=== PATIENT | female | born 1975 | race African-American/Black ===

== ENCOUNTER → 2017-04-23 | Outpatient (CLI) | payer OTHER, BC ==
[~2017-04-23] MED LIST: AZITHROMYCIN 2250 MG; COLACE100 MG PO; DEXILANT60 MG PO; DILAUDID2 MG PO; IMITREX 50 MG T50 MG PO; KENALOG-1010 MG/ML SUBQ; KENALOG60 GM; LEVAQUIN 500 M500 M1 PO; MILK OF MA2400 MG/10; MIRALAX17 GM PO; MUCINEX TA600 MG/TA2 PO; NORCO ELIXIR PO; PANTOPRAZOLE SO40 M1 PO; PREDNISONE 20 M20 M1 PO; PROMETHAZINE-C120 ML PO; PROTONIX40 M1 PO; SENOKOT-S1 TA1 PO; SUDOGEST60 MG PO; SUPHEDRINE30 MG PO; TOPAMAX 100 MG100 MG PO; XANAX 0.5 MG0.5 MG PO; ZOFRAN ODT4 MG PO; ZYRTEC10 MG PO
== END ==
LOC: RAD 04-19 04:06
DX: Z12.31 Encounter for screening mammogram for malignant neoplasm of breast (principal)

== ENCOUNTER → 2018-05-20 | Outpatient (CLI) | payer OTHER, BC | LOC: RAD 07:32 | DX: Z12.31 Encounter for screening mammogram for malignant neoplasm of breast (principal) ==

== ENCOUNTER → 2019-01-13 | Outpatient (CLI) | payer OTHER, BC ==
--- NOTE | 2019-01-13 12:26 | 2DMMODE ---
[facility] [employer] [address] 2 D/M-MODE ECHOCARDIOGRAM Name: THAO JORDAN Room #: REG [facility]#: [id number] Admission: 01/13/19 Attend Phys: Juana Byers Discharge: Date of : 71 Date of Service: 01/13/19 1226 Report #: [id number] THIS REPORT FOR: //name// APPROVED REPORT Study performed: 01/13/2019 10:33:08 EXAM: Comprehensive 2D, Doppler, and color-flow Echocardiogram Patient Location: Out-Patient Room #: Echo lab 1 Status: routine BSA: 1.78 HR: 64 bpm BP: 126/76 mmHg Rhythm: NSR Other Information Study Quality: Good Indications Near syncope 2D Dimensions RVDd: 30.56 mm IVSd: 8.14 (7-11mm) LVOT Diam: 17.66 (18-24mm) LVDd: 41.40 mm PWd: 7.74 (7-11mm) Ascending Ao: 26.60 (22-36mm) LVDs: 26.90 (25-40mm) Aortic Root: 23.88 mm IVC: 17.00 mm Volumes Left Atrial Volume (Systole) Single Plane 4CH: 53.32 mL Single Plane 2CH: 39.74 mL LA ESV Index: 29.00 mL/m2 Aortic Valve AoV Peak Tristan.: 1.66 m/s AO Peak Gr.: 10.99 mmHg LVOT Max P.62 mmHg LVOT Max V: 1.19 m/s DEEP Vmax: 1.75 cm2 Mitral Valve E/A Ratio: 1.5 MV Decel. Time: 202.17 ms MV E Max Tristan.: 1.06 m/s [facility] [address] [place] [address] 2 D/M-MODE ECHOCARDIOGRAM Name: THAO JORDAN Room #: [employer]#: [id number] Admission: 01/13/19 Attend Phys: Juana Byers Discharge: Date of : 71 Date of Service: 01/13/19 1226 Report #: [id number] MV A Tristan.: 0.72 m/s MV PHT: 58.63 ms IVRT: 83.04 ms Pulmonary Valve PV Peak Tristan.: 0.77 m/s PV Peak Gr.: 2.37 mmHg Pulmonary Vein P Vein S: 0.64 m/s P Vein A: 0.30 m/s P Vein D: 0.46 m/s P Vein A Dur.: 138.4 msec P Vein S/D Ratio: 1.39 Tricuspid Valve TR Peak Tristan.: 2.19 m/s TR Peak Gr.: 19.13 mmHg PA Pressure: 24.00 mmHg Left Ventricle The left ventricle is normal size. There is normal LV segmental wall motion. There is normal left ventricular wall thickness. Left ventricular systolic function is normal. The left ventricular ejection fraction is within the normal range. LVEF is 55-60%. The left ventricular diastolic function is normal. Right Ventricle The right ventricle is normal size. The right ventricular systolic function is normal. Atria The left atrium size is normal. The right atrium size is normal. Aortic Valve The aortic valve is normal in structure. No aortic regurgitation is present. There is no aortic valvular stenosis. Mitral Valve The mitral valve is normal in structure. There is no mitral valve regurgitation noted. No evidence of mitral valve stenosis. Tricuspid Valve The tricuspid valve is normal in structure. There is trace tricuspid regurgitation. Estimated PAP 24 mmHg. There is no pulmonary hypertension. Pulmonic Valve [address] [address] 2 D/M-MODE ECHOCARDIOGRAM Name: NIKKITHAO Alex Room #: REG [facility]#: [id number] Admission: 01/13/19 Attend Phys: Juana Byers Discharge: Date of : 71 Date of Service: 01/13/19 1226 Report #: [id number] The pulmonary valve is normal in structure. There is no pulmonic valvular regurgitation. Great Vessels The aortic root is normal in size. IVC is normal in size and collapses >50% with inspiration. Pericardium There is no pericardial effusion. <Conclusion> The left ventricle is normal size. There is normal left ventricular wall thickness. Left ventricular systolic function is normal. The right ventricle is normal size. The left atrium size is normal. The right atrium size is normal. The aortic valve is normal in structure. The mitral valve is normal in structure. There is trace tricuspid regurgitation. Estimated PAP 24 mmHg. <ELECTRONICALLY SIGNED> By: Rajendra Richards MD 01/13/19 1226 1226 1226 Rajendra Richards MD /INF
== END ==
LOC: CV 12-30 11:25
DX: I65.23 Occlusion and stenosis of bilateral carotid arteries (principal); R55 Syncope and collapse

== ENCOUNTER → 2019-05-29 | Outpatient (CLI) | payer OTHER, BC | LOC: RAD 08:27 | DX: R05 Cough (principal); R09.89 Other specified symptoms and signs involving the circulatory and respiratory systems ==

== ENCOUNTER → 2020-01-25 | Outpatient (CLI) | payer OTHER, BC | LOC: LAB 09:40 | PROVIDERS: ATTEND Pediatrics | DX: Z20.828 Contact with and (suspected) exposure to other viral communicable diseases (principal) ==

== ENCOUNTER → 2020-04-09 | Outpatient (CLI) | payer OTHER, BC | LOC: LAB 07:43 | PROVIDERS: ATTEND Specialist | DX: Z01.812 Encounter for preprocedural laboratory examination (principal); Z20.828 Contact with and (suspected) exposure to other viral communicable diseases ==

== ENCOUNTER → 2020-04-23 | Outpatient (CLI) | payer OTHER, BC ==
[2020-04-23 09:29] LABS: BASOPHILS 0.6 % (0.0-2.0); EOSINOPHILS 3.7 % (0.0-3.0); HEMATOCRIT 39.3 % (37.0-47.0); HEMOGLOBIN 12.4 gm/dL (12.0-15.0); LYMPHOCYTES 44.9 % (24.0-44.0); MCHC 31.5 g/dL (28.0-37.0); MCV 82.6 fL (80.0-100.0); MONOCYTES 6.2 % (1.0-8.0); PLATELET COUNT 206 thou/uL (150-400); POLYS 44.6 % (36.0-66.0); RBC 4.75 mil/uL (4.20-5.00); RDW 13.2 % (10.5-14.5); WBC 4.5 thou/uL (4.0-11.0)
[2020-04-23 09:45] LABS: ALBUMIN 3.5 g/dL (3.4-5.0); ANION GAP 7 mmol/L (7-16); BUN 9 mg/dL (7-18); CHLORIDE 102 mmol/L (98-107); CO2 27 mmol/L (21-32); CREATININE 0.9 mg/dL (0.6-1.0); GLUCOSE 90 mg/dL (74-106); POTASSIUM 3.7 mmol/L (3.5-5.1); SGOT 16 U/L (15-37); SGPT 19 U/L (30-65); SODIUM 136 mmol/L (136-145); TOTAL BILIRUBIN 0.8 mg/dL (0.2-1.0); TOTAL PROTEIN 7.6 g/dL (6.4-8.2)
[2020-04-23 09:59] LABS: CHOLESTEROL 179 mg/dL (<200); HDL CHOLESTEROL 82 mg/dL (>40); LDL CHOLESTEROL 86 mg/dL (<100); TC:HDL 2.2 Ratio (Not establshd); TRIGLYCERIDE 56 mg/dL (<150); VLDL 11 mg/dL (<40)
[2020-04-24 03:06] LABS: GLYCOHEMOGLOBIN (HGB A1C) 5.2 % (4.8-5.6)
[2020-04-24 15:09] LABS: ANTI-DNA SCREEN 1 IU/mL (0-9); ANTI-RNP 0.3 AI (0.0-0.9)
== END ==
LOC: BC 04-09 15:16 → LAB 07:22 → BC 14:55
PROVIDERS: ATTEND Pediatrics
DX: K21.00 Gastro-esophageal reflux disease with esophagitis, without bleeding (principal); R76.8 Other specified abnormal immunological findings in serum; K58.2 Mixed irritable bowel syndrome; R10.9 Unspecified abdominal pain; R53.83 Other fatigue; J45.901 Unspecified asthma with (acute) exacerbation; R79.82 Elevated C-reactive protein (CRP)

== ENCOUNTER → 2020-04-24 | Outpatient (CLI) | payer OTHER, BC | LOC: BC 07:58 | PROVIDERS: ATTEND Pediatrics | DX: Z12.31 Encounter for screening mammogram for malignant neoplasm of breast (principal) ==

== ENCOUNTER → 2020-05-28 | Outpatient (CLI) | payer OTHER, BC ==
[~2020-05-28] VITALS: Ht 162.6 cm; Wt 75.3 kg
[~2020-05-28] MED LIST changes: +SINGULAIR 10 MG10 M1 PO
== END ==
LOC: LAB 11:39
PROVIDERS: ATTEND Specialist
DX: Z01.812 Encounter for preprocedural laboratory examination (principal); Z20.828 Contact with and (suspected) exposure to other viral communicable diseases

== ENCOUNTER → 2020-08-06 | Outpatient (CLI) | payer OTHER, BC | LOC: LAB 10:10 | PROVIDERS: ATTEND Pediatrics | DX: R50.9 Fever, unspecified (principal) ==

== ENCOUNTER → 2020-08-08 | Outpatient (CLI) | payer OTHER, BC | LOC: LAB 08:30 | PROVIDERS: ATTEND Internal Medicine | DX: R50.9 Fever, unspecified (principal); J02.9 Acute pharyngitis, unspecified; Z20.822 Contact with and (suspected) exposure to COVID-19 ==

== ENCOUNTER → 2020-11-13 | Outpatient (CLI) | payer OTHER, BC ==
[~2020-11-13] VITALS: Ht 162.6 cm; Wt 72.6 kg
[~2020-11-13] MED LIST changes: +IBUPROFEN200 M1 PO; +PROAIR HFA8.5 GM INH
--- NOTE | ~2020-11-13 | P ---
[facility] [place] [address] PROCEDURE REPORT Name: THAO JORDAN Room #: REG [facility]#: [id number] Admission: 11/13/20 Attend Phys: Cong Marques Discharge: Date of : 71 Report #: [id number] THIS REPORT FOR: cc: Juana Byers MD, Laurie Dawn MD McElhinney, Christian C. MD ~ DOC #: [id number] cc: MD Cong Chris MD DATE OF SERVICE: 11/13/2020 PROCEDURE PERFORMED: Colonoscopy with biopsies. HISTORY OF PRESENT ILLNESS: The patient is a 45-year-old female with complaints of low intermittent crampy abdominal pain. She reports diarrhea and constipation which varies at times. She started fiber and MiraLax recently, which has been somewhat helpful. Also, complaining of abdominal bloating, rare episode of bright red blood per rectum. No family history of colon cancer. DESCRIPTION OF PROCEDURE: The risks and benefits of the procedure were explained to the patient, those risks including but not limited to bleeding, perforation and the risk of sedation. She understood these risks and gave informed consent. Sedation was given using propofol per anesthesia. Next, a digital rectal exam was initially performed, which was normal. Next, using a standard Olympus colonoscope, the scope was placed in the patient's anus and advanced under direct vision to the cecum. The overall prep was excellent. The cecum and ileocecal valve were normal in appearance. Terminal ileum was intubated and normal in appearance. The ascending, transverse and descending colon were normal. In the sigmoid colon, a 3 mm sessile polyp was noted. This was removed with cold forceps. Also a submucosal lipoma was noted. The rectal mucosa was normal. There was no evidence of inflammation or colitis throughout the exam today. However, random biopsies were obtained to rule out the possibility of microscopic colitis. On retroflexion, small nonbleeding internal hemorrhoids were noted. The scope was then withdrawn and the procedure terminated. The patient tolerated the procedure well. IMPRESSION: 1. Small colonic polyp. 2. Small internal hemorrhoids. 3. Otherwise, normal colonoscopy. RECOMMENDATIONS: 1. Await biopsy results. 2. Continue daily fiber and MiraLax as this has been helpful to regulate her bowel movements between constipation and diarrhea. [address] [address] PROCEDURE REPORT Name: THAO JORDAN Room #: REG [facility] Snyder#: [id number] Admission: 11/13/20 Attend Phys: Cong Marques Discharge: Date of : 71 Report #: [id number] 3. We will add Levsin on a p.r.n. basis. 4. If polyp is hyperplastic, repeat in 10 years; if adenomatous polyp, repeat in 5 years. Thank you for allowing me to participate in her care. Cong Clark MD CCM/TIFFANIE By: 1035 2312 Cong Clark MD /nt
--- NOTE | 2020-11-15 17:07 | PATH ---
[facility] [address] [address] PATHOLOGY RPT PROCEDURE Name: THAO JORDAN Room #: REG [facility] Alberts.#: [id number] Admission: 11/13/20 Date of : 71 Discharge: Report #: [id number] Path Case #: [id number] [facility] Accession Number: [id number] . 01 Material submitted: . PART A: colon - RANDOM COLON BX-R/O MICROSCOPIC COLITIS PART B: sigmoid colon - SIGMOID COLON POLYP BX . 01 Clinical history: . A. R/O MICROSCOPIC COLITIS . 01 Diagnosis: A. Colonic mucosa "random colon biopsies rule out microscopic colitis": - No obvious diagnostic changes. - There is no evidence of acute cryptitis, granulomas, adenomatous change, changes of microscopic colitis or malignancy. . B. Colonic mucosa "sigmoid colon polyp biopsy": - Tubular adenoma. - There is no evidence of high grade dysplasia or malignancy. (ADEOLA/ricardo; 11/15/2020) LBQ 11/15/2020 1619 Local . 01 Electronically signed: . Maury Theodore MD, Pathologist NPI- [id number] . 01 Gross description: . A. The specimen is received in formalin, labeled "Thao Jordan, random colon biopsy". Received are four segments of pale mays tissue ranging in size from 0.3-0.6 cm in maximum dimensions. The specimen is submitted entirely in cassette A1. . B. The specimen is received in formalin, labeled "Thao Jordan, sigmoid colon polyp biopsy". Received are two segments of pale mays tissue measuring 0.3 cm each in maximum dimensions. The specimen is submitted entirely in cassette B1. (CAA; 11/14/2020) QAC/QAC 11/14/2020 1924 Local . 01 Pathologist provided ICD-10: D12.5 . 01 CPT . 814169, 834023 Specimen Comment: A courtesy copy of this report has been sent to [phone] [id number] [address] PATHOLOGY RPT PROCEDURE Name: THAO JORDAN Alex Room #: REG [facility] CindySarai#: [id number] Admission: 11/13/20 Date of : 71 Discharge: Report #: [id number] Path Case #: [id number] Specimen Comment: [id number] Specimen Comment: Report sent to / DR GAMINO Performed at: 01 [facility] [place] [address], [place], [place] [id number] MD Maury Theodore MD Phone: [phone]
== END | disposition home or self-care (01) ==
LOC: GI 05-28 10:54
PROVIDERS: ATTEND Specialist
DX: R10.9 Unspecified abdominal pain (principal); R19.7 Diarrhea, unspecified; D12.5 Benign neoplasm of sigmoid colon; K64.8 Other hemorrhoids; K21.9 Gastro-esophageal reflux disease without esophagitis; G43.909 Migraine, unspecified, not intractable, without status migrainosus; F41.9 Anxiety disorder, unspecified; Z98.890 Other specified postprocedural states; Z79.899 Other long term (current) drug therapy; Z90.710 Acquired absence of both cervix and uterus; Z90.49 Acquired absence of other specified parts of digestive tract; Z88.8 Allergy status to other drugs, medicaments and biological substances
CPT/HCPCS: 62110; 62900

== ENCOUNTER → 2021-05-19 | Outpatient (CLI) | payer OTHER, BC | LOC: BC 05-15 16:53 | PROVIDERS: ATTEND Pediatrics | DX: Z12.31 Encounter for screening mammogram for malignant neoplasm of breast (principal); N64.89 Other specified disorders of breast ==